=== PATIENT | male | born 1995 | race Hispanic/Latino ===

== ENCOUNTER 2018-01-12 23:56 | Emergency (ER) | payer BC, OTHER ==
[~2018-01-12 23:56] MED LIST: ACET1TAB12 PO
== END 2018-01-13 00:17 | disposition home or self-care (01) ==
LOC: EDH 23:56
DX: L03.317 Cellulitis of buttock (principal); Z90.49 Acquired absence of other specified parts of digestive tract

== ENCOUNTER 2018-05-18 21:40 | Emergency (ER) | payer OTHER ==
[2018-05-18] MEDS ORDERED: NA BORATE/BORIC AC/H2O/NACL 120 ML OPHTH IRRIG SOLN ONE (22:17)
[2018-05-18] MEDS ORDERED: FLUORESCEIN SODIUM 0.6 MG STRIP ONE (22:18)
== END 2018-05-18 23:15 | disposition home or self-care (01) ==
LOC: EDH 21:40
DX: S05.01XA Injury of conjunctiva and corneal abrasion without foreign body, right eye, initial encounter (principal); Z77.098 Contact with and (suspected) exposure to other hazardous, chiefly nonmedicinal, chemicals; X58.XXXA Exposure to other specified factors, initial encounter; Y93.89 Activity, other specified; Y92.69 Other specified industrial and construction area as the place of occurrence of the external cause; Y99.8 Other external cause status

== ENCOUNTER 2018-05-22 11:55 | Emergency (ER) | payer SELFPAY ==
[2018-05-22] MEDS ORDERED: TETANUS/DIPHTHERIA TOXOID [ADULT] 0.5 ML VIAL IM ONE (12:13)
[2018-05-22] MEDS ORDERED: IBUPROFEN 600 MG TABLET ONE (12:36)
[2018-05-22] MEDS ORDERED: SODIUM CHLORIDE 0.9% 100 ML IV ONE (15:23)
[2018-05-22] MEDS ORDERED: CEFAZOLIN SODIUM 1 GM VIAL ONE (15:23)
== END 2018-05-22 16:01 | disposition home or self-care (01) ==
LOC: EDH 11:55
DX: T23.122A Burn of first degree of single left finger (nail) except thumb, initial encounter (principal); T31.0 Burns involving less than 10% of body surface; W86.8XXA Exposure to other electric current, initial encounter; Y93.89 Activity, other specified; Y92.488 Other paved roadways as the place of occurrence of the external cause; Y99.8 Other external cause status
CPT/HCPCS: 16000; 73140; 90471; 90714; 96365; 99284; J0690